=== PATIENT | female | born 1950 | race Caucasian/White ===

== ENCOUNTER 2020-09-27 21:19 | Inpatient (IN) | payer MEDICARE ==
[~2020-09-27] VITALS: Ht 152.4 cm; Wt 68.0 kg
[2020-09-27] MEDS ORDERED: BAYER CHEWABLE81 MG PO (21:23)
[2020-09-27] MEDS ORDERED: CLONIDINE HCL0.1 MG PO (21:24)
[2020-09-27] MEDS ORDERED: ALOPHEN PILLS5 MG PO (21:24)
[2020-09-27] MEDS ORDERED: CELEXA20 MG PO (21:24)
[2020-09-27] MEDS ORDERED: COREG6.25 MG PO (21:25)
[2020-09-27] MEDS ORDERED: WARFARIN SODIUM5 MG PO (21:25)
[2020-09-27] MEDS ORDERED: BENADRYL50 MG PO (21:25)
[2020-09-27] MEDS ORDERED: DRONABINOL2.5 MG PO (21:26)
[2020-09-27] MEDS ORDERED: DOK100 MG PO (21:26)
[2020-09-27] MEDS ORDERED: LASIX80 MG PO (21:26)
[2020-09-27] MEDS ORDERED: HYDRALAZINE HC100 MG PO (21:26)
[2020-09-27] MEDS ORDERED: PEPCID AC20 MG PO (21:27)
[2020-09-27] MEDS ORDERED: MIRALAX17 GM PO (21:27)
[2020-09-27] MEDS ORDERED: ACETAMINOPHEN325 MG PO (21:28)
[2020-09-27] MEDS ORDERED: SENNA LAXATIVE8.6 MG PO (21:28)
[2020-09-27 22:17] LABS: MEAN PLATELET VOLUME 7.4 fL (7.4-10.4)
[2020-09-27 22:19] LABS: BASOPHILS 1.5 % (0-2); EOSINOPHILS 0.4 % (0-7); LYMPHOCYTES 18.7 % (15-50); MCH 27.9 pg (26.0-34.0); MCHC 33.5 g/dL (31.0-37.0); MCV 83.1 fL (80.0-100.0); NEUTROPHILS 71.4 % (40-80); PLATELET COUNT 246 10x3/uL (130-400); RBC 2.35 10x6/uL (4.00-5.40); RDW 15.2 % (11.5-14.5); WBC 9.4 10x3/uL (4.8-10.8)
[2020-09-27 22:27] LABS: APTT 30.2 SECONDS (22.8-39.4); INR 2.95 (0.85-1.17); PROTIME 28.6 SECONDS (11.6-15.0)
[2020-09-27 22:55] LABS: HEMATOCRIT 19.6 % (36.0-48.0); HEMOGLOBIN 6.6 g/dL (12-16)
--- NOTE | 2020-09-27 23:03 | NUR ---
PATIENT ABNORMAL LABS HEMOGLOBIN 6.6 AND HEMATOCRIT 19.6
[2020-09-27 23:09] LABS: ALBUMIN 3.6 g/dL (3.4-5.0); ALKALINE PHOSPHATASE 105 U/L (30-120); ALT (SGPT) 34 U/L (10-68); BILIRUBIN - TOTAL 0.98 mg/dL (0.2-1.3); CALC OSMOLALITY 307 mosm/kg (275-300); CALCIUM 11.2 mg/dL (8.5-10.1); CARBON DIOXIDE 32.3 mmol/L (21.0-32.0); CHLORIDE - SERUM 97 mmol/L (98-107); CREATINE KINASE 17 UL (21-215); GLUCOSE 150 mg/dL (74-106); LIPASE 299 U/L (73-393); PRO BNP 3243 pg/mL (0-125); PROTEIN - SERUM 6.9 g/dL (6.4-8.2); SODIUM 138 mmol/L (136-145); THYROID STIMULATING HORMONE 1.45 uIU/mL (0.36-3.74); UREA NITROGEN 95 mg/dL (7-18); eGFR NON AFRICAN AMERICAN 12 mL/min (90-120)
[2020-09-27 23:14] LABS: C-REACTIVE PROTEIN < 0.2 mg/dL (0.0-0.9)
[2020-09-27 23:17] LABS: POTASSIUM - SERUM 2.9 mmol/L (3.5-5.1); TROPONIN-I 0.539 ng/mL (0.000-0.060)
--- NOTE | 2020-09-27 23:46 | NUR ---
PATIENT CRITICAL LABS CALLED TO NURSE POTASSIUM 2.9 AND TROPONIN 0.539
--- NOTE | 2020-09-27 23:57 | NUR ---
PATIENT REFUSED ORAL POTASSIUM WHEN NURSE WENT TO GIVE MEDICATION. HCP NOTIFIED.
[2020-09-28] VITALS (8 sets, daily range): BP systolic 117–148; BP diastolic 39–52; Ht 152.4 cm; Wt 68.0 kg
[2020-09-28] MEDS ORDERED: NORVASC10 MG PO (05:39)
[2020-09-28 06:42] LABS: BASOPHILS 0.4 % (0-2); EOSINOPHILS 0.6 % (0-7); LYMPHOCYTES 22.1 % (15-50); MCH 28.9 pg (26.0-34.0); MEAN PLATELET VOLUME 7.6 fL (7.4-10.4); MONOCYTES 8.4 % (2-11); NEUTROPHILS 68.5 % (40-80); PLATELET COUNT 240 10x3/uL (130-400); RDW 15.1 % (11.5-14.5); WBC 9.6 10x3/uL (4.8-10.8)
[2020-09-28 06:47] LABS: HEMATOCRIT 27.9 % (36.0-48.0); HEMOGLOBIN 9.5 g/dL (12-16); RBC 3.29 10x6/uL (4.00-5.40)
[2020-09-28 07:11] LABS: % SATURATION 12 % (15-55); IRON 54 ug/dl (35-150); TOTAL IRON BIND CAPACITY 436 ug/dl (260-445); UNSAT IRON BIND CAPACITY 382 ug/dl (150-375)
[2020-09-28 07:31] LABS: ALBUMIN 3.7 g/dL (3.4-5.0); ANION GAP 13.4 mmol/L (8-16); BILIRUBIN - TOTAL 1.55 mg/dL (0.2-1.3); CALCIUM 11.8 mg/dL (8.5-10.1); CARBON DIOXIDE 31.7 mmol/L (21.0-32.0); CREATININE - SERUM 3.6 mg/dL (0.6-1.3); MAGNESIUM - SERUM 3.2 mg/dL (1.8-2.4); PHOSPHOROUS 4.5 mg/dL (2.5-4.9); POTASSIUM - SERUM 3.1 mmol/L (3.5-5.1); PROTEIN - SERUM 6.9 g/dL (6.4-8.2); TROPONIN-I 0.572 ng/mL (0.000-0.060)
[2020-09-28 07:38] LABS: RETIC 4.43 % (0.45-2.28)
--- NOTE | 2020-09-28 08:50 | NUR ---
ALERT AND ORIENTED TO SELF. ASSESSMENT COMPLETE. BED LOW. CALL BEST AND PERSONAL ITEMS IN REACH. WILL CONTINUE TO MONITOR.
[2020-09-28 11:21] LABS: BILIRUBIN NEGATIVE (NEGATIVE); KETONE NEGATIVE (NEGATIVE); NITRITE NEGATIVE (NEGATIVE); UROBILINOGEN NORMAL mg/dL (< 2)
[2020-09-28 11:22] LABS: SQUAMOUS EPITHELIAL 0-5 HPF (0-4); WHITE CELLS - URINE 0-5 HPF (0-4)
[2020-09-28 11:23] LABS: BACTERIA FEW HPF (NONE SEEN)
--- NOTE | 2020-09-28 14:54 | NUR ---
PATIENT REFUSES TO TAKE COUMADIN. CRUSHED IN . STILL WON'T TAKE. LEFT IN ROOM BY SINK. WILL ATTEMPT AGAIN.
[2020-09-28 17:41] LABS: CREATININE - URINE 73.8 mg/dL (30-125); PRO/CRE RATIO URINE 0.9 mg/g; PROTEIN - URINE 65.9 mg/dL (0.0-11.9)
--- NOTE | 2020-09-28 20:00 | NUR ---
PT SITTING UP IN BED WITHOUT DISTRESS, ORIENTED TO SELF ONLY. INCONTINENT OF URINE, LINENS CHANGED. NIKI CARE PROVIDED. CYRUS ON. DENIES ANY NEEDS AT THIS TIME. CL IN REACH
[2020-09-29 04:00] VITALS: BP 156/51
[2020-09-29 06:27] LABS: BASOPHILS 0.6 % (0-2); EOSINOPHILS 1.1 % (0-7); HEMATOCRIT 31.7 % (36.0-48.0); HEMOGLOBIN 10.6 g/dL (12-16); LYMPHOCYTES 19.5 % (15-50); MCH 28.8 pg (26.0-34.0); MCHC 33.3 g/dL (31.0-37.0); MCV 86.5 fL (80.0-100.0); MEAN PLATELET VOLUME 7.9 fL (7.4-10.4); MONOCYTES 7.4 % (2-11); NEUTROPHILS 71.4 % (40-80); PLATELET COUNT 231 10x3/uL (130-400); RBC 3.67 10x6/uL (4.00-5.40); RDW 14.9 % (11.5-14.5)
[2020-09-29 06:40] LABS: WBC 12.3 10x3/uL (4.8-10.8)
[2020-09-29 06:43] LABS: ALBUMIN 3.7 g/dL (3.4-5.0); BILIRUBIN - TOTAL 1.74 mg/dL (0.2-1.3); CARBON DIOXIDE 28.5 mmol/L (21.0-32.0); MAGNESIUM - SERUM 2.6 mg/dL (1.8-2.4)
[2020-09-29 06:46] LABS: ANION GAP 13.6 mmol/L (8-16); CREATININE - SERUM 2.6 mg/dL (0.6-1.3); PHOSPHOROUS 2.6 mg/dL (2.5-4.9); POTASSIUM - SERUM 4.1 mmol/L (3.5-5.1)
[2020-09-29 07:11] LABS: INR 1.84 (0.85-1.17); PROTIME 19.7 SECONDS (11.6-15.0)
--- NOTE | 2020-09-29 07:34 | NUR ---
ALERT AND ORIENTED TO SELF. BED LOW. BED ALARM ON. CALL BEST AND PERSONAL ITEMS IN REACH. ASSESSMENT COMPLETE. WILL CONTINUE TO MONITOR.
[2020-09-29 09:52] VITALS: BP 139/61
[2020-09-29 12:36] VITALS: BP 142/58
--- NOTE | 2020-09-29 13:00 | NUR ---
Nutrition follow-up: Diet advanced to regular mechanical soft with thin liquids per speech path Labs reviewed Nurse reports pt alert to self only today WT: 150# Coumadin on hold RDN will follow-up on pts continued progress toward nutrition goals within 3-5 days.
[2020-09-29 16:33] VITALS: BP 109/67
--- NOTE | 2020-09-29 18:48 | NUR ---
OT NOTE: PT COMPLETED BUE AROM AXS TOLERATED. PT COMPLETED FACE HYGIENE WITH SETUP AND MOD CUES FOR INCREASED PARTICIPATION. PT COMPLETED ORAL CARE WITH TOOTHETTE WITH SETUP AND MOD VERBAL CUES. CL IN REACH AND ALARM ON. [phone] BISHNU VINCENT COTA
--- NOTE | 2020-09-29 20:00 | NUR ---
PT SITTING UP IN BED WITHOUT DISTRESS, ORIENTED TO SELF ONLY. SCDS ON BILAT. DENIES NEEDS AT THIS TIME. CYRUS ON. CL IN REACH
[2020-09-29 20:12] VITALS: BP 123/49
[2020-09-30 04:00] VITALS: BP 143/80
[2020-09-30 07:16] LABS: ALBUMIN 3.5 g/dL (3.4-5.0); ANION GAP 14.3 mmol/L (8-16); BILIRUBIN - TOTAL 1.64 mg/dL (0.2-1.3); CALCIUM 9.6 mg/dL (8.5-10.1); POTASSIUM - SERUM 3.3 mmol/L (3.5-5.1); PROTEIN - SERUM 6.7 g/dL (6.4-8.2)
[2020-09-30 07:18] LABS: BASOPHILS 0.5 % (0-2); EOSINOPHILS 1.2 % (0-7); HEMATOCRIT 29.5 % (36.0-48.0); HEMOGLOBIN 9.9 g/dL (12-16); LYMPHOCYTES 16.8 % (15-50); MCH 29.1 pg (26.0-34.0); MCHC 33.7 g/dL (31.0-37.0); MCV 86.1 fL (80.0-100.0); MONOCYTES 7.1 % (2-11); NEUTROPHILS 74.4 % (40-80); PLATELET COUNT 224 10x3/uL (130-400); RBC 3.42 10x6/uL (4.00-5.40); RDW 14.8 % (11.5-14.5); WBC 12.2 10x3/uL (4.8-10.8)
[2020-09-30 07:25] LABS: INR 1.76 (0.85-1.17); PROTIME 19.1 SECONDS (11.6-15.0)
--- NOTE | 2020-09-30 09:23 | NUR ---
PATIENT REFUSES TO SWALLOW PILLS. FLINCHES AND MOVES AWAY EVERY TIME ATTEMPT EVEN WITH MEDS CRUSHED IN .
--- NOTE | 2020-09-30 10:09 | NUR ---
PATIENT SLEEPING POST EGD. ASSESSMENT COMPLETE. BED LOW. BED ALARM ON. CALL BEST AND PERSONAL ITEMS IN REACH. WILL CONTINUE TO MONITOR.
[2020-09-30 12:53] VITALS: BP 143/52
--- NOTE | 2020-09-30 14:10 | NUR ---
RESTING IN BED. STILL SLEEPING OFF AND ON POST EGD. AROUSES TO VOICE AND WILL RESPOND BUT FALLS BACK ASLEEP. VS REMAIN STABLE.
--- NOTE | 2020-09-30 15:11 | EC ---
PATIENT:MARIANA MILES DATE OF SERVICE: 09/28/20 SEX: F MEDICAL RECORD: [id number] DATE OF : [birth year] LOCATION:[facility] AGE OF PATIENT: 70 ADMISSION DATE: 09/28/20 REFERRING PHYSICIAN: INTERPRETING PHYSICIAN: WU HENRY MD ECHOCARDIOGRAM REPORT ECHO CHARGES 4 ECHO COMPLETE Date: 09/29/20 CLINICAL DIAGNOSIS: LVH ECHOCARDIOGRAPHIC MEASUREMENTS (adult normal given) AC root (d.<3.7cm) 3.0 cm LV Septum d (<1.2 cm> 2.2 cm Valve Excursion 1.4 cm LV Septum (systole) 2.2 cm Left Atria (s.<4.0cm> 5.2 cm LVPW d(<1.2cm) 1.2 cm RV (d.<2.3cm) 5.0 cm LVPW (sytole) 1.5 cm LV diastole(<5.6CM) 4.1 cm MV E-F(>70mm/sec) 1.1 cm LV systole 2.9 cm LVOT Diameter 1.5 cm MV exc.(>10mm) cm Est.ejection fraction (50-75%) 55 % DOPPLER: LVIT cm/sec A 29 cm/sec E 131 cm/sec LA cm/sec RVSP 33 mmHg LVOT 0.75 cm/sec AOP1/2T m/s Asc. Ao 138 cm/sec RVOT 132 cm/sec RA 5.7 cm/sec PA 136 cm/sec AV Gradient Peak 7 mmHg AV Mean 5 mmHg AV Area 0.8 cm MV Gradient Peak 6 mmHg MV Mean 2 mmHg MV Area cm COMMENTS: Livestock Inspector: Shaw COBB German Instructor: 3 Dr. Golden TAPE# Pericardial Effusion N DATE OF SERVICE: CLINICAL INDICATION: Left ventricular hypertrophy. INTERPRETATION: Technically difficult study, overall normal left ventricular chamber size and contractile function with mild concentric left ventricular hypertrophy and ejection fraction of 55%. FINDINGS: Left atrial chamber is mildly dilated. Right atrium and right ventricular chamber size and function appears normal. Aortic valve appears ECHOCARDIOGRAM REPORT [id number] MARIANA MILES normal. No aortic stenosis/regurgitation. There is mild mitral annular calcification. Mild thickening of the mitral leaflets. Trivial mitral regurgitation. Tricuspid valve appears normal. Trivial tricuspid regurgitation. Pulmonic valve appears normal. Trace pulmonary regurgitation. No pericardial effusion visualized. IMPRESSION: Technically difficult study, overall normal left ventricular chamber size and contractile function with mild concentric left ventricular hypertrophy with an ejection fraction of 55%. TRANSINT:[id number] Voice Confirmation ID: [id number] DOCUMENT ID: [id number] WU HENRY MD at 1511 CC: [id number] DICTATION DATE: 09/29/20 1522 COMMERCIAL COLLECTIONS DRIVER: 09/29/20 1621 ADM IN [facility] [address] [id number]
[2020-09-30 17:05] VITALS: BP 151/71
--- NOTE | 2020-09-30 17:07 | NUR ---
PATIENT AWAKE WATCHING TV AND REFUSING PO MEDICATIONS.
--- NOTE | 2020-09-30 17:18 | NUR ---
OT NOTE: PT TOO LETHARGIC TO PARTICIPATE...DUE TO EARLIER PROCEDURE. THANK YOU,LENARD MARAVILLA
[2020-09-30 21:57] VITALS: BP 145/48
[2020-10-01 01:40] VITALS: BP 160/61
--- NOTE | 2020-10-01 03:56 | NUR ---
I have reviewed this patient and I concur with the Shift Assessment completed by the Licensed Practical Nurse today this shift.
[2020-10-01 05:41] LABS: BASOPHILS 0.8 % (0-2); HEMATOCRIT 26.3 % (36.0-48.0); HEMOGLOBIN 8.9 g/dL (12-16); LYMPHOCYTES 20.1 % (15-50); MCH 29.1 pg (26.0-34.0); MCHC 33.8 g/dL (31.0-37.0); MCV 86.2 fL (80.0-100.0); MEAN PLATELET VOLUME 7.5 fL (7.4-10.4); MONOCYTES 7.2 % (2-11); NEUTROPHILS 70.9 % (40-80); PLATELET COUNT 187 10x3/uL (130-400); RBC 3.05 10x6/uL (4.00-5.40); RDW 14.7 % (11.5-14.5); WBC 9.3 10x3/uL (4.8-10.8)
[2020-10-01 06:10] LABS: ALBUMIN 2.9 g/dL (3.4-5.0); ANION GAP 12.1 mmol/L (8-16); BILIRUBIN - TOTAL 1.29 mg/dL (0.2-1.3); CALCIUM 8.6 mg/dL (8.5-10.1); CARBON DIOXIDE 24.2 mmol/L (21.0-32.0); CREATININE - SERUM 1.8 mg/dL (0.6-1.3); MAGNESIUM - SERUM 1.8 mg/dL (1.8-2.4); PHOSPHOROUS 2.4 mg/dL (2.5-4.9); POTASSIUM - SERUM 3.3 mmol/L (3.5-5.1); PROTEIN - SERUM 5.6 g/dL (6.4-8.2)
[2020-10-01 06:38] VITALS: BP 147/69
--- NOTE | 2020-10-01 07:25 | NUR ---
REC'D IN BED WITH EYES CLOSED EASILY TO AROUSED WHEN NAME IS CALLED. RESP EVEN AND UNLABORED WITH NO DISTRESS NOTED. CAN EXPRESS NEEDS AND WANTS. NO C/O NOTED. ASSESSMENT COMPLETED. C/L IN REACH AT BEDSIDE.
[2020-10-01 09:28] VITALS: BP 165/59
[2020-10-01 12:16] VITALS: BP 161/81
--- NOTE | 2020-10-01 13:39 | NUR ---
REPORT WAS CALLED AND GIVEN TO CHARGE NURSE ALSO SPOKE WITH [facility] AND THEY HAVE AGREED TO ACCEPT PT BACK TO FACILITY AT THIS TIME.
--- NOTE | 2020-10-01 15:07 | NUR ---
DC BACK TO [facility] AT THIS TIME VIA [facility]. NO C/O NOTED OR VOICED. IV DC. PT LEFT WITH ALL PERSONAL BELONG. STABLE CONDITION UPON DEPARTURE.
--- NOTE | 2020-10-01 19:38 | MORECARE ---
CASE MANAGEMENT DISCHARGE SUMMARY PATIENT: MARIANA MILES UNIT: [id number] ADM DATE: 09/28/20 AGE: 70 : 51 SEX: F ROOM/BED: D.2208 AUTHOR: FLAVIO,DOC PHYSICIAN: REFERRING PHYSICIAN: BUDDY BARCLAY MD DATE OF SERVICE: 10/01/20 Case Management Discharge Planning Summary COMMENTS ENTERED DATE: 10/01/20 19:34 CT COMMENT TYPE: Discharge Planning REVIEWER: Lowell Paulino CM met with patient to complete DC plan and to evaluate needs. Patient lives at [facility] and her face sheet lists Leah Mckay, as her person to notify. CM spoke with Celine beauchamp RN structural steel shop supervisor. Celine stated that the patient can return if appropriate but first she will review clinical. Clinical documents faxed to Celine. Patient voiced no other needs at this time and is satisfied with DC plan. Transportation provider at discharge will be with [place]. DC IMM delivered, explained, signed by the patient, and placed in chart. Signed form also left with the patient. CM will continue to follow and will assist as needed with dc plans/needs. ENTERED DATE: 10/01/20 12:32 CT COMMENT TYPE: Discharge Planning REVIEWER: Heidi Walsh Faxed clinical documents with D/C instructions to Aure at [facility] ([phone]) DCP REVIEW SUMMARY ANTICIPATED D/C DATE: 10/01/2020 EXPECTED LOS : 3 CASE STATUS: DCP Initiated INITIAL REVIEW: 09/28/2020 INITIAL REVIEWER: Lowell Paulino FINAL DISCHARGE DISPOSITION: : FINAL REVIEWER: FINAL REVIEW DATE: DCP [facility] Questions & Answers QUESTION: ANSWER : PATIENT: MARIANA MILES ENCOUNTER: [id number] MEDICAL RECORD#: [id number] ADMISSION DATE: 09/28/2020 DISCHARGE DATE: 10/01/2020 ATTENDING MD: JONAS HARDIN : AGE: 70 MARITAL STATUS: U DC PLAN ID: [id number] FACILITY: [facility] PRINTED ON: 10/01/20 19:38 CT All edits/amendments must be made on the electronic document DICTATION DATE: 10/01/201937 TAX STAFF ACCOUNTANT: CHET 10/01/201937 RPT#: [id number] DC DATE:10/01/20 STATUS: DIS IN [facility] [address] [address] END OF REPORT
--- NOTE | 2020-10-03 09:50 | MORECARE ---
CASE MANAGEMENT DISCHARGE SUMMARY PATIENT: MARIANA MILES UNIT: [id number] ADM DATE: 09/28/20 AGE: 70 : 51 SEX: F ROOM/BED: D.2208 AUTHOR: FLAVIO,DOC PHYSICIAN: REFERRING PHYSICIAN: BUDDY BARCLAY MD DATE OF SERVICE: 10/03/20 Case Management Discharge Planning Summary COMMENTS ENTERED DATE: 10/01/20 19:34 CT COMMENT TYPE: Discharge Planning REVIEWER: Lowell Paulino CM met with patient to complete DC plan and to evaluate needs. Patient lives at [facility] and her face sheet lists Leah Mckay, as her person to notify. CM spoke with Celine beauchamp RN technical supervisor. Celine stated that the patient can return if appropriate but first she will review clinical. Clinical documents faxed to Celine. Patient voiced no other needs at this time and is satisfied with DC plan. Transportation provider at discharge will be with [place]. DC IMM delivered, explained, signed by the patient, and placed in chart. Signed form also left with the patient. CM will continue to follow and will assist as needed with dc plans/needs. ENTERED DATE: 10/01/20 12:32 CT COMMENT TYPE: Discharge Planning REVIEWER: Heidi Walsh Faxed clinical documents with D/C instructions to Aure at [facility] ([phone]) DCP REVIEW SUMMARY ANTICIPATED D/C DATE: 10/01/2020 EXPECTED LOS : 3 CASE STATUS: DCP Initiated INITIAL REVIEW: 09/28/2020 INITIAL REVIEWER: Lowell Paulino FINAL DISCHARGE DISPOSITION: : FINAL REVIEWER: FINAL REVIEW DATE: DCP [facility] Questions & Answers QUESTION: ANSWER : PATIENT: MARIANA MILES ENCOUNTER: [id number] MEDICAL RECORD#: [id number] ADMISSION DATE: 09/28/2020 DISCHARGE DATE: 10/01/2020 ATTENDING MD: JONAS HARDIN : AGE: 70 MARITAL STATUS: U DC PLAN ID: [id number] FACILITY: [facility] PRINTED ON: 10/03/20 9:49 CT All edits/amendments must be made on the electronic document DICTATION DATE: 10/03/20948 WET WASHER MACHINE: CHET 10/03/20948 RPT#: [id number] DC DATE:10/01/20 STATUS: DIS IN [facility] [address] [place] [address] END OF REPORT
--- NOTE | 2020-10-04 13:22 | MORECARE ---
CASE MANAGEMENT DISCHARGE SUMMARY PATIENT: MARIANA MILES UNIT: [id number] ADM DATE: 09/28/20 AGE: 70 : 51 SEX: F ROOM/BED: D.2208 AUTHOR: FLAVIO,DOC PHYSICIAN: REFERRING PHYSICIAN: BUDDY BARCLAY MD DATE OF SERVICE: 10/04/20 Case Management Discharge Planning Summary COMMENTS ENTERED DATE: 10/01/20 19:34 CT COMMENT TYPE: Discharge Planning REVIEWER: Lowell Paulino CM met with patient to complete DC plan and to evaluate needs. Patient lives at [facility] and her face sheet lists Leah Mckay, as her person to notify. CM spoke with Celine beauchamp RN split and drum room supervisor. Celine stated that the patient can return if appropriate but first she will review clinical. Clinical documents faxed to Celine. Patient voiced no other needs at this time and is satisfied with DC plan. Transportation provider at discharge will be with [place]. DC IMM delivered, explained, signed by the patient, and placed in chart. Signed form also left with the patient. CM will continue to follow and will assist as needed with dc plans/needs. ENTERED DATE: 10/01/20 12:32 CT COMMENT TYPE: Discharge Planning REVIEWER: Heidi Walsh Faxed clinical documents with D/C instructions to Aure at [facility] ([phone]) DCP REVIEW SUMMARY ANTICIPATED D/C DATE: 10/01/2020 EXPECTED LOS : 3 CASE STATUS: DCP Initiated INITIAL REVIEW: 09/28/2020 INITIAL REVIEWER: Lowell Paulino FINAL DISCHARGE DISPOSITION: : FINAL REVIEWER: FINAL REVIEW DATE: DCP [facility] Questions & Answers QUESTION: ANSWER : PATIENT: MARIANA MILES ENCOUNTER: [id number] MEDICAL RECORD#: [id number] ADMISSION DATE: 09/28/2020 DISCHARGE DATE: 10/01/2020 ATTENDING MD: JONAS HARDIN : AGE: 70 MARITAL STATUS: U DC PLAN ID: [id number] FACILITY: [facility] PRINTED ON: 10/04/20 13:22 CT All edits/amendments must be made on the electronic document DICTATION DATE: 10/04/20 132 SALES SUPPORT REP: CHET 10/04/20 132 RPT#: [id number] DC DATE:10/01/20 STATUS: DIS IN [facility] [address] [place] [address] END OF REPORT
[2020-10-04 17:08] LABS: AEROBE ID Final report (())
== END 2020-10-01 15:09 | DRG 812 ==
LOC: D.ER 21:19 → D.MS 09-28 01:43
PROVIDERS: Family Medicine; Internal Medicine Gastroenterology; Internal Medicine Nephrology; ADMIT Emergency Medicine; ATTEND Emergency Medicine
PROC: 0DJ08ZZ Inspection of Upper Intestinal Tract, Via Natural or Artificial Opening Endoscopic (ICD-10-PCS; principal; 2020-09-30 07:00)
DX: D50.9 Iron deficiency anemia, unspecified (principal); N17.9 Acute kidney failure, unspecified; I24.8 Other forms of acute ischemic heart disease; E83.52 Hypercalcemia; E83.41 Hypermagnesemia; E87.6 Hypokalemia; F03.90 Unspecified dementia, unspecified severity, without behavioral disturbance, psychotic disturbance, mood disturbance, and anxiety; I10 Essential (primary) hypertension; I48.91 Unspecified atrial fibrillation; Z79.01 Long term (current) use of anticoagulants; E86.9 Volume depletion, unspecified; Z91.81 History of falling; R53.81 Other malaise; K21.00 Gastro-esophageal reflux disease with esophagitis, without bleeding; K29.50 Unspecified chronic gastritis without bleeding